=== PATIENT | male | born 1980 | race Caucasian/White ===

== ENCOUNTER 2016-05-30 14:52 | Emergency (ER) | payer MEDICAID ==
--- NOTE | 2016-05-30 15:12 | EDPHY ---
HPI/HX/ROS/PE/MDM Narrative: Chief complaint: Alcohol intoxication, fall, head injury HPI: 36-year-old homeless male states that he had a slip and fall on the ice after drinking. He states he did hit his head. Had a loss of consciousness. Does not recall long he was unconscious. Per EMS he was found asleep in the snow. Patient admits to drinking significant amounts of alcohol. Currently complaining of head pain. No numbness or weakness. No chest pain or shortness of breath. No abdominal pain. ROS: 10 point Review of Systems is negative except as noted in the HPI. Physical exam: Gen: Awake, Alert, Airway Intact, slurred speech, slow to answer, smells of alcohol HEENT: Head: Head appears to be a hematoma in the occiput which appears old with a scabbed abrasion again which appears to be at least several days old. Eyes: PERRLA, EOMI Nose: No epistaxis Mouth: Normal dentition, Airway patent Face: No deformity Neck: non-tender, no stepoff, Full ROM without pain Chest: non-tender, lungs CTA Heart: normal heart tones Abd: soft, non-tender, atraumatic Pelvis: non-tender, stable to AP and Lateral compression Back: atraumatic, no midline tenderness Ext: atramatic, full ROM Skin: no rash Neuro: CN II-XII intact, Strength 5/5 in all extremities, sensation intact in all extremities ED Course: CT head: Normal per Dr. Fuentes [id number] patient ambulating unassisted in the emergency department. He is medically cleared to go to the [facility]. General Time Seen by Provider: 05/30/16 15:05 Initial Vital Signs: Initial Vital Signs Temperature (C) 36.5 C 05/30/16 15:02 Heart Rate 82 05/30/16 15:02 Respiratory Rate 18 05/30/16 15:02 Blood Pressure 122/69 H 05/30/16 15:02 O2 Sat (%) 99 05/30/16 15:02 O2 Delivery Mode Room Air Allergies/Adverse Reactions: aspirin Allergy (Severe, Verified 05/21/16 22:25) Swelling/neck,face,throat Home Medications: Medication Instructions Recorded FLUoxetine [Prozac 20 MG (*)] 20 mg PO BID 03/23/16 Lisinopril [Zestril 10 mg (*)] 10 mg PO DAILY 03/23/16 Metoprolol Succinate Xr [Toprol Xl 25 mg PO DAILY 03/23/16 25 mg (*)] Departure - Departure Disposition: Home, Routine, Self-Care Clinical Impression: Alcohol intoxication Condition: Good Instructions: Alcohol Intoxication (ED) Additional Instructions: Seek help to decrease your alcohol consumption. Referrals: Patient,NotPresent [Primary Care Provider] - As per Instructions [facility] [Outside] - As per Instructions
--- NOTE | 2016-05-30 15:44 | CT ---
CT Scan of Head (Without Contrast) Clinical Indications: Trauma. Technique: Axial CT images were acquired from foramen magnum through vertex, without intravenous con trast. Soft tissue and bone windows were reviewed on the computer workstation. Images were reconstr ucted down to 1.25 mm images. Dose reduction techniques were utilized. Findings: No mass lesions are seen, and there is no evidence of intracranial hemorrhage or acute inf arct. The ventricles and subarachnoid spaces are normal in size for this age group. Bone windows re veal no sign of fracture. There is a posterior scalp hematoma. There is bilateral maxillary sinus dis ease. Impressions 1. Scalp hematoma. 2. Bilateral maxillary sinus disease. Critical results relayed by Dr. Fuentes to Dr. Campos May 30, 2016, 1537 hours.
[2016-05-30] MEDS ORDERED: CHLORDIAZEPOXIDE 25MG PREPK#6 BTL TAKEHOME ONE (16:02)
[2016-05-30 17:31] VITALS: BP 124/74; RESP 16; O2SAT 93
[2016-05-30 17:52] VITALS: PULSE 80; TEMP 97.9
== END 2016-05-30 17:50 | disposition home or self-care (01) ==
LOC: EDUNIT#
DX: F10.129 Alcohol abuse with intoxication, unspecified (principal); W00.0XXA Fall on same level due to ice and snow, initial encounter